=== PATIENT | female | born 1955 | race Two or more races ===

== ENCOUNTER 2017-12-09 12:58 | Inpatient (IN) | payer MEDICAID ==
[~2017-12-09] VITALS: Ht 165.1 cm; Wt 94.0 kg
[2017-12-09] MEDS ORDERED: ONDANSETRON HCL 4 MG/2 ML VIAL IV ONE (15:30)
[2017-12-09] MEDS ORDERED: MORPHINE SULF INJ 2 MG/ML SYRINGE 1ML IV ONE (15:30)
[2017-12-09] MEDS ORDERED: LEVOTHYROXINE SODIUM 25 MCG TAB PO ONE (16:15)
[2017-12-09] MEDS ORDERED: LISINOPRIL 10 MG TAB PO ONE (16:15)
[2017-12-09] MEDS ORDERED: DEXTROSE (50%) 50ML SYRG IV PRN (16:15)
[2017-12-09] MEDS ORDERED: TEMAZEPAM 15 MG CAP PO PRN (16:30)
[2017-12-09] MEDS ORDERED: MORPHINE SULF INJ 2 MG/ML SYRINGE 1ML IV PRN (16:30)
[2017-12-09] MEDS ORDERED: NITROGLYCERIN 0.4 MG SL TAB SL PRN (16:30)
[2017-12-09] MEDS ORDERED: ACETAMINOPHEN 325 MG TAB PO PRN (16:30)
[2017-12-09 16:42] LABS: Albumin 3.5 g/dL (3.4-5.0); BUN/Creatinine Ratio 12.3; Calcium 8.7 mg/dL (8.5-10.1); Potassium 5.1 mmol/L (3.5-5.1)
[2017-12-09 16:45] LABS: Bilirubin, Total 0.6 mg/dL (0.2-1.0); Total Protein 7.1 g/dL (6.4-8.2)
[2017-12-09 16:49] LABS: INR 0.95 (0.9-1.15); Partial Thromboplastin Time 25.4 sec (23.78-33.04); Prothrombin Time 10.2 sec (9.27-12.13)
[2017-12-09 16:56] LABS: Hematocrit 40.3 % (36.0-46.0); Hemoglobin 13.3 g/dL (12.2-16.2); Mean Corpuscular Hemoglobin 31.6 pg (28.0-32.0); Mean Corpuscular Hgb Conc. 32.9 g/dL (32.0-36.0); Mean Corpuscular Volume 96.1 fL (80.0-100.0); Platelet Count (auto) 245 10^3/uL (140-450); Red Blood Cells 4.19 10^6/uL (4.0-5.20); Red Cell Distribution Width 13.3 % (11.8-14.3); White Blood Cell 23.5 10^3/uL (4.4-10.8)
[2017-12-09 17:16] LABS: Band Neutrophils % (manual) 0; Basophils % (manual) 0 (0.0-2.0); Blast Cells 0; Metamyelocytes % 0; Myelocytes % 0; Promyelocytes % 0; Reactive Lymphocytes 0
[2017-12-09] MEDS: ACCU-CHEK COMFORT CURVE STRIP VI SCH ×2 (17:36→21:59)
[2017-12-09] MEDS: InsuLIN REG 1unit/0.01ml Soln (100units/ml) SC SCH ×2 (17:36→21:59)
[2017-12-09] MEDS: FERROUS SULFATE 325 MG TAB PO SCH (17:40)
[2017-12-09 18:20] LABS: Eosinophils % (manual) 1 (0-7); Lymphocytes % (manual) 65 (10.0-50.0); Monocytes % (manual) 3 (0-12)
[2017-12-09 21:00] VITALS: BP 131/84
[2017-12-09] MEDS: ATORVASTATIN 20 MG TAB PO SCH (21:49)
[2017-12-09] MEDS: GABAPENTIN 300 MG CAP PO SCH (21:49)
[2017-12-09] MEDS: SODIUM CHLOR 0.9% PF (SALINE LOCK) 10ML VIAL/SYR IV SCH (21:50)
[2017-12-09] MEDS: INSULIN LANTUS (GLARGINE) 1 /0.01ml (100units/ml) SC SCH (21:59)
[2017-12-09 22:00] VITALS: BP 131/84
[2017-12-09] MEDS: MORPHINE SULF INJ 2 MG/ML SYRINGE 1ML IV PRN (23:48)
[2017-12-10] MEDS: MORPHINE SULF INJ 2 MG/ML SYRINGE 1ML IV PRN ×5 (01:03→23:38)
[2017-12-10 05:00] VITALS: BP 125/68
[2017-12-10] MEDS ORDERED: LEVO50TA7 PO (06:19)
[2017-12-10] MEDS ORDERED: LEVEMIR SC (06:19)
[2017-12-10] MEDS ORDERED: LOSA25TA40 PO (06:19)
[2017-12-10] MEDS ORDERED: GABA300C10 PO (06:19)
[2017-12-10] MEDS ORDERED: SIMV10TA84 PO (06:19)
[2017-12-10] MEDS: GABAPENTIN 300 MG CAP PO SCH ×3 (06:35→22:12)
[2017-12-10] MEDS: LEVOTHYROXINE SODIUM 25 MCG TAB PO SCH (06:36)
[2017-12-10] MEDS: InsuLIN REG 1unit/0.01ml Soln (100units/ml) SC SCH ×4 (06:36→22:51)
[2017-12-10] MEDS: SODIUM CHLOR 0.9% PF (SALINE LOCK) 10ML VIAL/SYR IV SCH ×3 (06:36→22:12)
[2017-12-10] MEDS: ACCU-CHEK COMFORT CURVE STRIP VI SCH ×4 (06:37→22:51)
[2017-12-10 06:38] LABS: Hematocrit 38.3 % (36.0-46.0); Hemoglobin 12.7 g/dL (12.2-16.2); Mean Corpuscular Hemoglobin 31.8 pg (28.0-32.0); Mean Corpuscular Hgb Conc. 33.1 g/dL (32.0-36.0); Platelet Count (auto) 240 10^3/uL (140-450); Red Cell Distribution Width 13.5 % (11.8-14.3)
[2017-12-10 06:48] LABS: Band Neutrophils % (manual) 0; Basophils % (manual) 0 (0.0-2.0); Blast Cells 0; Eosinophils % (manual) 0 (0-7); Metamyelocytes % 0; Myelocytes % 0; Promyelocytes % 0; Reactive Lymphocytes 0
[2017-12-10 07:02] LABS: Albumin 3.4 g/dL (3.4-5.0); BUN/Creatinine Ratio 16.9; Calcium 8.3 mg/dL (8.5-10.1); Potassium 4.5 mmol/L (3.5-5.1)
[2017-12-10 07:06] LABS: Total Protein 6.8 g/dL (6.4-8.2)
[2017-12-10 07:48] LABS: Lymphocytes % (manual) 68 (10.0-50.0); Monocytes % (manual) 2 (0-12)
[2017-12-10] MEDS: FERROUS SULFATE 325 MG TAB PO SCH ×2 (07:55→18:25)
[2017-12-10 08:00] VITALS: BP 133/73
[2017-12-10 09:27] VITALS: BP 133/73
[2017-12-10] MEDS: LISINOPRIL 10 MG TAB PO SCH (10:02)
[2017-12-10] MEDS: MULTIPLE VITAMIN TAB PO SCH (10:02)
[2017-12-10 13:21] VITALS: BP 133/73
[2017-12-10 17:08] VITALS: BP 126/64
[2017-12-10 21:42] VITALS: BP 124/59
[2017-12-10] MEDS: ATORVASTATIN 20 MG TAB PO SCH (22:12)
[2017-12-10] MEDS: INSULIN LANTUS (GLARGINE) 1 /0.01ml (100units/ml) SC SCH (22:51)
[2017-12-11 04:35] VITALS: BP 135/68
[2017-12-11] MEDS: MORPHINE SULF INJ 2 MG/ML SYRINGE 1ML IV PRN ×3 (05:30→20:51)
[2017-12-11] MEDS: ACCU-CHEK COMFORT CURVE STRIP VI SCH ×4 (05:30→20:35)
[2017-12-11] MEDS: InsuLIN REG 1unit/0.01ml Soln (100units/ml) SC SCH ×4 (05:30→20:35)
[2017-12-11] MEDS: SODIUM CHLOR 0.9% PF (SALINE LOCK) 10ML VIAL/SYR IV SCH ×3 (05:45→20:32)
[2017-12-11] MEDS: GABAPENTIN 300 MG CAP PO SCH ×3 (05:45→20:32)
[2017-12-11] MEDS: LEVOTHYROXINE SODIUM 25 MCG TAB PO SCH (05:45)
[2017-12-11 06:05] LABS: Urine Bacteria FEW /hpf (None Seen); Urine Blood Negative /uL (Negative); Urine Mucus FEW (None Seen); Urine Specific Gravity 1.011 (1.001-1.035); Urine WBC 13 /hpf (0 - 5)
[2017-12-11 08:00] VITALS: BP_SYST 133; BP_SYST 135; BP_DIAS 68; BP_DIAS 73
[2017-12-11] MEDS: FERROUS SULFATE 325 MG TAB PO SCH ×2 (08:00→18:01)
[2017-12-11] MEDS ORDERED: ceFAZolin 1GM/50ML 50 ML IV ONE (08:17)
[2017-12-11] MEDS ORDERED: LIDOCAINE 1% (LOCAL ANESTH.) PF 5ml SDV ONE ×2 (08:18→08:21)
[2017-12-11] MEDS ORDERED: SUCCINYLCHOLINE CHLORIDE 20 MG/ML 10ML VIAL IV ONE (08:18)
[2017-12-11] MEDS ORDERED: ROCURONIUM 10MG/ML 10ML VIAL IV ONE (08:21)
[2017-12-11] MEDS ORDERED: MIDAZOLAM HCL 1MG/1ML-2 ML VIAL ONE (08:21)
[2017-12-11] MEDS ORDERED: ETOMIDATE (2MG/ML) 20ML VIAL IV ONE (08:22)
[2017-12-11] MEDS ORDERED: METOCLOPRAMIDE HCL 5MG/ml INJ 2ml VIAL ONE (08:28)
[2017-12-11] MEDS ORDERED: fentaNYL CITRATE 100 MCG/2 ML VL ONE (08:41)
[2017-12-11] MEDS ORDERED: NALOXONE HCL 0.4 MG/ML VIAL IV PRN (08:45)
[2017-12-11] MEDS ORDERED: HYDROmorphone HCL 2 MG/ML VL IV PRN ×2 (08:45)
[2017-12-11] MEDS ORDERED: ONDANSETRON HCL 4 MG/2 ML VIAL IV ONE (08:45)
[2017-12-11] MEDS ORDERED: ACCU-CHEK COMFORT CURVE STRIP VI ONE (08:45)
[2017-12-11 09:00] VITALS: BP 121/61
[2017-12-11] MEDS ORDERED: ePHEDrine SULFATE 50 MG/ML AMP ONE (09:03)
[2017-12-11] MEDS ORDERED: SODIUM CHLORIDE LOCK 10 ML ONE (09:03)
[2017-12-11] MEDS: MULTIPLE VITAMIN TAB PO SCH (10:00)
[2017-12-11] MEDS: LISINOPRIL 10 MG TAB PO SCH (10:00)
[2017-12-11] MEDS: ceFAZolin 1GM/50ML 50 ML IV SCH ×3 (12:00→23:53)
[2017-12-11 13:00] VITALS: BP 143/69
[2017-12-11] MEDS: HYDROcodone-ACET 5/325MG TAB PO PRN (14:48)
[2017-12-11 16:53] VITALS: BP 130/70
[2017-12-11] MEDS: ONDANSETRON HCL 4 MG/2 ML VIAL IV PRN ×2 (16:53→20:52)
[2017-12-11] MEDS: ATORVASTATIN 20 MG TAB PO SCH (20:32)
[2017-12-11] MEDS: INSULIN LANTUS (GLARGINE) 1 /0.01ml (100units/ml) SC SCH (20:35)
[2017-12-11 22:00] VITALS: BP 145/71
[2017-12-12] MEDS: MORPHINE SULF INJ 2 MG/ML SYRINGE 1ML IV PRN ×4 (01:00→23:56)
[2017-12-12 04:54] VITALS: BP 134/69
[2017-12-12] MEDS: GABAPENTIN 300 MG CAP PO SCH ×3 (05:04→21:01)
[2017-12-12] MEDS: ceFAZolin 1GM/50ML 50 ML IV SCH ×4 (05:25→23:27)
[2017-12-12] MEDS: LEVOTHYROXINE SODIUM 25 MCG TAB PO SCH (05:30)
[2017-12-12] MEDS: SODIUM CHLOR 0.9% PF (SALINE LOCK) 10ML VIAL/SYR IV SCH ×3 (05:39→21:04)
[2017-12-12] MEDS: InsuLIN REG 1unit/0.01ml Soln (100units/ml) SC SCH ×4 (05:40→21:03)
[2017-12-12] MEDS: ACCU-CHEK COMFORT CURVE STRIP VI SCH ×4 (05:41→21:03)
[2017-12-12 08:00] VITALS: BP 133/73
[2017-12-12] MEDS: HYDROcodone-ACET 5/325MG TAB PO PRN ×2 (08:47→13:50)
[2017-12-12 08:48] VITALS: BP 136/67
[2017-12-12] MEDS: FERROUS SULFATE 325 MG TAB PO SCH ×2 (08:49→18:12)
[2017-12-12] MEDS: MULTIPLE VITAMIN TAB PO SCH (10:36)
[2017-12-12] MEDS: LISINOPRIL 10 MG TAB PO SCH (10:36)
[2017-12-12 12:47] VITALS: BP 138/77
[2017-12-12] MEDS: ONDANSETRON HCL 4 MG/2 ML VIAL IV PRN (16:49)
[2017-12-12 16:52] VITALS: BP 109/56
[2017-12-12] MEDS: ATORVASTATIN 20 MG TAB PO SCH (21:01)
[2017-12-12] MEDS: INSULIN LANTUS (GLARGINE) 1 /0.01ml (100units/ml) SC SCH (21:03)
[2017-12-12 22:00] VITALS: BP 115/62
[2017-12-13 05:00] VITALS: BP 98/54
[2017-12-13] MEDS: ceFAZolin 1GM/50ML 50 ML IV SCH (05:21)
[2017-12-13] MEDS: SODIUM CHLOR 0.9% PF (SALINE LOCK) 10ML VIAL/SYR IV SCH ×3 (05:30→21:09)
[2017-12-13] MEDS: GABAPENTIN 300 MG CAP PO SCH ×3 (05:31→21:09)
[2017-12-13] MEDS: InsuLIN REG 1unit/0.01ml Soln (100units/ml) SC SCH ×4 (05:31→23:51)
[2017-12-13] MEDS: ACCU-CHEK COMFORT CURVE STRIP VI SCH ×4 (05:32→23:51)
[2017-12-13] MEDS: LEVOTHYROXINE SODIUM 25 MCG TAB PO SCH (05:32)
[2017-12-13] MEDS: MORPHINE SULF INJ 2 MG/ML SYRINGE 1ML IV PRN ×2 (05:34→12:36)
[2017-12-13 08:54] VITALS: BP 115/59
[2017-12-13] MEDS: MULTIPLE VITAMIN TAB PO SCH (10:16)
[2017-12-13] MEDS: LISINOPRIL 10 MG TAB PO SCH (10:16)
[2017-12-13] MEDS: FERROUS SULFATE 325 MG TAB PO SCH ×2 (10:16→18:26)
[2017-12-13 12:34] VITALS: BP 118/80
[2017-12-13] MEDS: DOCUSATE SOD 100 MG CAP PO PRN (17:05)
[2017-12-13 17:13] VITALS: BP_SYST 107; BP_SYST 115; BP_DIAS 58; BP_DIAS 59
[2017-12-13] MEDS: ATORVASTATIN 20 MG TAB PO SCH (21:09)
[2017-12-13 22:00] VITALS: BP 114/73
[2017-12-13] MEDS: INSULIN LANTUS (GLARGINE) 1 /0.01ml (100units/ml) SC SCH (23:51)
[2017-12-14 05:18] VITALS: BP 104/51
[2017-12-14] MEDS: SODIUM CHLOR 0.9% PF (SALINE LOCK) 10ML VIAL/SYR IV SCH ×3 (05:58→21:55)
[2017-12-14] MEDS: LEVOTHYROXINE SODIUM 25 MCG TAB PO SCH (05:58)
[2017-12-14] MEDS: GABAPENTIN 300 MG CAP PO SCH ×3 (05:58→21:37)
[2017-12-14] MEDS: ACCU-CHEK COMFORT CURVE STRIP VI SCH ×4 (05:58→21:39)
[2017-12-14] MEDS: MORPHINE SULF INJ 2 MG/ML SYRINGE 1ML IV PRN ×4 (06:15→22:10)
[2017-12-14] MEDS: ONDANSETRON HCL 4 MG/2 ML VIAL IV PRN (06:15)
[2017-12-14] MEDS: InsuLIN REG 1unit/0.01ml Soln (100units/ml) SC SCH ×4 (07:00→21:54)
[2017-12-14 09:02] VITALS: BP 120/59
[2017-12-14] MEDS: MULTIPLE VITAMIN TAB PO SCH (09:50)
[2017-12-14] MEDS: FERROUS SULFATE 325 MG TAB PO SCH ×2 (09:50→18:28)
[2017-12-14] MEDS: LISINOPRIL 10 MG TAB PO SCH (09:51)
[2017-12-14 13:00] VITALS: BP 121/63
[2017-12-14] MEDS: LACTULOSE 20Gm/30ML SOLN PO PRN ×2 (15:11→21:36)
[2017-12-14 17:17] VITALS: BP 113/61
[2017-12-14] MEDS: ATORVASTATIN 20 MG TAB PO SCH (21:37)
[2017-12-14] MEDS: DOCUSATE SOD 100 MG CAP PO PRN (21:37)
[2017-12-14] MEDS: INSULIN LANTUS (GLARGINE) 1 /0.01ml (100units/ml) SC SCH (21:55)
[2017-12-14 21:56] VITALS: BP 108/55
[2017-12-15] VITALS (7 sets, daily range): BP systolic 100–132; BP diastolic 52–71
[2017-12-15] MEDS: MORPHINE SULF INJ 2 MG/ML SYRINGE 1ML IV PRN (03:58)
[2017-12-15] MEDS: GABAPENTIN 300 MG CAP PO SCH ×3 (05:26→21:41)
[2017-12-15] MEDS: SODIUM CHLOR 0.9% PF (SALINE LOCK) 10ML VIAL/SYR IV SCH ×3 (06:05→21:39)
[2017-12-15] MEDS: LEVOTHYROXINE SODIUM 25 MCG TAB PO SCH (06:06)
[2017-12-15] MEDS: ACCU-CHEK COMFORT CURVE STRIP VI SCH ×4 (06:06→21:41)
[2017-12-15] MEDS: InsuLIN REG 1unit/0.01ml Soln (100units/ml) SC SCH ×4 (06:07→21:40)
[2017-12-15] MEDS: HYDROcodone-ACET 5/325MG TAB PO PRN ×3 (09:18→21:37)
[2017-12-15] MEDS: FERROUS SULFATE 325 MG TAB PO SCH ×2 (09:18→17:33)
[2017-12-15] MEDS: MULTIPLE VITAMIN TAB PO SCH (09:18)
[2017-12-15] MEDS: LISINOPRIL 10 MG TAB PO SCH (10:00)
[2017-12-15] MEDS: ONDANSETRON HCL 4 MG/2 ML VIAL IV PRN (18:57)
[2017-12-15] MEDS: ATORVASTATIN 20 MG TAB PO SCH (21:38)
[2017-12-15] MEDS: INSULIN LANTUS (GLARGINE) 1 /0.01ml (100units/ml) SC SCH (21:41)
[2017-12-16] MEDS: HYDROcodone-ACET 5/325MG TAB PO PRN ×3 (02:59→18:27)
[2017-12-16 05:21] VITALS: BP 109/52
[2017-12-16] MEDS: MULTIPLE VITAMIN TAB PO SCH (06:15)
[2017-12-16] MEDS: GABAPENTIN 300 MG CAP PO SCH ×3 (06:56→21:51)
[2017-12-16] MEDS: LEVOTHYROXINE SODIUM 25 MCG TAB PO SCH (06:57)
[2017-12-16] MEDS: ACCU-CHEK COMFORT CURVE STRIP VI SCH ×4 (06:58→21:51)
[2017-12-16] MEDS: SODIUM CHLOR 0.9% PF (SALINE LOCK) 10ML VIAL/SYR IV SCH ×3 (06:58→21:50)
[2017-12-16] MEDS: InsuLIN REG 1unit/0.01ml Soln (100units/ml) SC SCH ×4 (07:11→22:17)
[2017-12-16] MEDS: FERROUS SULFATE 325 MG TAB PO SCH ×2 (08:00→18:10)
[2017-12-16 09:00] VITALS: BP 96/62
[2017-12-16] MEDS: LISINOPRIL 10 MG TAB PO SCH (10:00)
[2017-12-16 13:00] VITALS: BP 127/64
[2017-12-16 16:47] VITALS: BP 104/58
[2017-12-16 20:00] VITALS: BP 123/71
[2017-12-16 21:29] VITALS: BP 132/71
[2017-12-16] MEDS: ATORVASTATIN 20 MG TAB PO SCH (21:51)
[2017-12-16] MEDS: INSULIN LANTUS (GLARGINE) 1 /0.01ml (100units/ml) SC SCH (22:18)
[2017-12-17] MEDS: HYDROcodone-ACET 5/325MG TAB PO PRN ×3 (00:41→14:20)
[2017-12-17 05:08] VITALS: BP 119/54
[2017-12-17] MEDS: SODIUM CHLOR 0.9% PF (SALINE LOCK) 10ML VIAL/SYR IV SCH ×3 (06:18→22:46)
[2017-12-17] MEDS: GABAPENTIN 300 MG CAP PO SCH ×3 (06:18→23:04)
[2017-12-17] MEDS: LEVOTHYROXINE SODIUM 25 MCG TAB PO SCH (06:19)
[2017-12-17] MEDS: ACCU-CHEK COMFORT CURVE STRIP VI SCH ×4 (06:19→23:05)
[2017-12-17] MEDS: InsuLIN REG 1unit/0.01ml Soln (100units/ml) SC SCH ×4 (06:19→23:04)
[2017-12-17] MEDS: FERROUS SULFATE 325 MG TAB PO SCH ×2 (08:00→18:00)
[2017-12-17 09:00] VITALS: BP 109/55
[2017-12-17] MEDS: MULTIPLE VITAMIN TAB PO SCH (09:00)
[2017-12-17] MEDS: LISINOPRIL 10 MG TAB PO SCH (09:01)
[2017-12-17 13:00] VITALS: BP 120/59
[2017-12-17 17:00] VITALS: BP 125/59
[2017-12-17 21:33] VITALS: BP 109/61
[2017-12-17] MEDS: ATORVASTATIN 20 MG TAB PO SCH (23:03)
[2017-12-17] MEDS: INSULIN LANTUS (GLARGINE) 1 /0.01ml (100units/ml) SC SCH (23:05)
[2017-12-18 04:37] VITALS: BP 114/67
[2017-12-18] MEDS: SODIUM CHLOR 0.9% PF (SALINE LOCK) 10ML VIAL/SYR IV SCH ×2 (06:55→14:00)
[2017-12-18] MEDS: LEVOTHYROXINE SODIUM 25 MCG TAB PO SCH (06:55)
[2017-12-18] MEDS: GABAPENTIN 300 MG CAP PO SCH ×2 (06:55→14:00)
[2017-12-18] MEDS: HYDROcodone-ACET 5/325MG TAB PO PRN ×3 (06:56→18:02)
[2017-12-18] MEDS: ACCU-CHEK COMFORT CURVE STRIP VI SCH ×3 (06:56→17:24)
[2017-12-18] MEDS: InsuLIN REG 1unit/0.01ml Soln (100units/ml) SC SCH ×3 (06:56→17:24)
[2017-12-18] MEDS: HYDROmorphone HCL 2 MG/ML VL IV PRN ×4 (08:15→16:30)
[2017-12-18 08:53] VITALS: BP 118/61
[2017-12-18] MEDS: FERROUS SULFATE 325 MG TAB PO SCH ×2 (10:36→18:04)
[2017-12-18] MEDS: MULTIPLE VITAMIN TAB PO SCH (10:36)
[2017-12-18] MEDS: LISINOPRIL 10 MG TAB PO SCH (10:37)
[2017-12-18] MEDS: DOCUSATE SOD 100 MG CAP PO PRN (10:38)
[2017-12-18 12:30] VITALS: BP 106/63
[2017-12-18 14:28] VITALS: BP 119/69
[2017-12-18 16:31] VITALS: BP 118/66
[2017-12-18 17:25] VITALS: BP 119/69
== END 2017-12-18 19:28 | DRG 314 ==
LOC: ER 12:58 → EDBD 12:58 → TELE 12:59 → TELE-WESTW 20:11
PROVIDERS: ADMIT Internal Medicine; ATTEND Internal Medicine
PROC: 0QSL04Z Reposition Right Tarsal with Internal Fixation Device, Open Approach (ICD-10-PCS; 2017-12-11)
PROC: 0QSN04Z Reposition Right Metatarsal with Internal Fixation Device, Open Approach (ICD-10-PCS; principal; 2017-12-11 08:19)
DX: S92.231A Displaced fracture of intermediate cuneiform of right foot, initial encounter for closed fracture (principal); C95.90 Leukemia, unspecified not having achieved remission; E03.9 Hypothyroidism, unspecified; I10 Essential (primary) hypertension; S92.321A Displaced fracture of second metatarsal bone, right foot, initial encounter for closed fracture; E11.9 Type 2 diabetes mellitus without complications; E78.5 Hyperlipidemia, unspecified; W01.0XXA Fall on same level from slipping, tripping and stumbling without subsequent striking against object, initial encounter; Y93.89 Activity, other specified; Y92.098 Other place in other non-institutional residence as the place of occurrence of the external cause; Y99.8 Other external cause status
CPT/HCPCS: 36415; 71045; 73620; 80053; 81001; 82962; 83036; 84443; 85007; 85027; 85610; 85730; 86850; 86900; 86901; 96374; 96375; 97110; 97116; 97530; A6257; C1769; J0330; J0690; J1815; J2250; J2405

== ENCOUNTER 2018-04-13 05:56 | Emergency (ER) | payer MEDICAID ==
[~2018-04-13] VITALS: Ht 165.1 cm; Wt 84.8 kg
[~2018-04-13 05:56] MED LIST: GABA300C10 PO; LEVEMIR SC; LEVO50TA7 PO; LOSA25TA40 PO; SIMV10TA84 PO
[2018-04-13] MEDS ORDERED: SODIUM CHLORIDE 0.9% 1,000 ML IV ONE (07:14)
[2018-04-13 07:52] LABS: Urine Bacteria NONE SEEN /hpf (None Seen); Urine Blood Negative /uL (Negative); Urine Mucus FEW (None Seen); Urine Specific Gravity 1.016 (1.001-1.035); Urine WBC 5 /hpf (0 - 5)
[2018-04-13 08:04] LABS: Potassium 4.1 mmol/L (3.5-5.1)
[2018-04-13 08:05] LABS: Albumin 3.8 g/dL (3.4-5.0); BUN/Creatinine Ratio 18.3; Calcium 8.7 mg/dL (8.5-10.1)
[2018-04-13 08:07] LABS: Bilirubin, Total 0.3 mg/dL (0.2-1.0); Mean Corpuscular Hemoglobin 31.4 pg (28.0-32.0); Mean Corpuscular Hgb Conc. 32.6 g/dL (32.0-36.0); Mean Corpuscular Volume 96.4 fL (80.0-100.0); Platelet Count (auto) 277 10^3/uL (140-450); Red Blood Cells 4.15 10^6/uL (4.0-5.20); Red Cell Distribution Width 13.6 % (11.8-14.3); Total Protein 7.4 g/dL (6.4-8.2); White Blood Cell 27.2 10^3/uL (4.4-10.8)
[2018-04-13 08:23] LABS: Basophils % (manual) 0 (0.0-2.0); Blast Cells 0; Eosinophils % (manual) 0 (0-7); Metamyelocytes % 0; Myelocytes % 0; Promyelocytes % 0; Reactive Lymphocytes 0
[2018-04-13 11:24] LABS: Band Neutrophils % (manual) 1; Lymphocytes % (manual) 37 (10.0-50.0); Monocytes % (manual) 9 (0-12)
[2018-04-13 12:48] VITALS: BP 152/72
== END 2018-04-13 13:30 | disposition home or self-care (01) ==
LOC: EDBD 05:56 → ER 06:05
DX: E11.649 Type 2 diabetes mellitus with hypoglycemia without coma (principal); C91.Z0 Other lymphoid leukemia not having achieved remission; E03.9 Hypothyroidism, unspecified; I10 Essential (primary) hypertension
CPT/HCPCS: 36415; 71046; 80053; 81001; 82962; 83735; 84443; 85007; 85027; 93005; 96360; 96361; 99284; J7030